=== PATIENT | female | born 1975 | race Caucasian/White ===

== ENCOUNTER → 2016-06-26 | Outpatient (CLI) | payer OTHER ==
[~2016-06-26] MED LIST: IBUP-1773 PO; MEDR10TA PO
--- NOTE | 2016-06-26 18:13 | Diagnostic Imaging Report ---
INDICATION: Menorrhagia. COMPARISON: 01/01/2015. FINDINGS: The uterus measures 6.4 cm x 3.5 cm x 5.7 cm. The endometrium is 11 mm in thickness. The left ovary measures 2.1 cm x 2.6 cm x 2.3 cm. There are small cysts or follicles present on the left ovary. Doppler imaging demonstrates normal blood flow to the left ovary. The right ovary is not visualized. There is no adnexal mass or free fluid seen. IMPRESSION: No acute abnormality is demonstrated. Uterine endometrium measures about 11 mm which is within normal limits for menstruating female. There are multiple cysts or follicles in the left ovary. The right ovary is not visualized. Dictated by: Dictated on workstation # [id number]
== END ==
LOC: RAD 17:12
PROVIDERS: ATTEND Obstetrics & Gynecology
DX: N92.0 Excessive and frequent menstruation with regular cycle (principal); E66.01 Morbid (severe) obesity due to excess calories
CPT/HCPCS: 76830; 76856

== ENCOUNTER 2016-07-07 15:32 | Outpatient (CLI) | payer OTHER ==
[~2016-07-07] VITALS: Ht 157.5 cm; Wt 113.0 kg
[2016-07-07] MEDS ORDERED: MEDR10TA PO (15:46)
[2016-07-07 15:49] VITALS: BP 128/70
[2016-07-07 16:22] LABS: BASOPHILS % (AUTO) 0 % (0-10); EOSINOPHILS # (AUTO) 0.1 10^3/uL (0.0-0.3); EOSINOPHILS % (AUTO) 1 % (0-10); LYMPHOCYTES # (AUTO) 2.2 X 10^3 (1.0-4.0); LYMPHOCYTES % (AUTO) 28 % (12-44); MEAN CORPUSCULAR HEMOGLOBIN 31 PG (25-34); MEAN CORPUSCULAR HGB CONC 35 G/DL (32-36); MEAN CORPUSCULAR VOLUME 88 FL (80-99); MEAN PLATELET VOLUME 11.6 FL (7.4-10.4); MONOCYTES # (AUTO) 0.5 X 10^3 (0.0-1.0); MONOCYTES % (AUTO) 6 % (0-12); NEUTROPHILS # (AUTO) 4.9 X 10^3 (1.8-7.8); NEUTROPHILS % (AUTO) 64 % (42-75); PLATELET COUNT 184 10^3/uL (130-400); RED BLOOD COUNT 4.54 10^6/uL (4.35-5.85); RED CELL DISTRIBUTION WIDTH 12.1 % (10.0-14.5); WHITE BLOOD COUNT 7.6 10^3/uL (4.3-11.0)
== END 2016-07-07 16:00 | disposition home or self-care (01) ==
LOC: PREOP 15:32
PROVIDERS: ATTEND Obstetrics & Gynecology
DX: Z01.812 Encounter for preprocedural laboratory examination (principal); Z11.2 Encounter for screening for other bacterial diseases; N93.9 Abnormal uterine and vaginal bleeding, unspecified; E66.01 Morbid (severe) obesity due to excess calories; Z68.42 Body mass index [BMI] 45.0-49.9, adult
CPT/HCPCS: 36415; 85025; 86850; 86900; 86901; 87081

== ENCOUNTER 2016-07-10 07:10 | Day surgery (SDC) | payer OTHER ==
[~2016-07-10] VITALS: Ht 157.5 cm; Wt 113.0 kg
[~2016-07-10 07:10] MED LIST changes: +BUPIVACAINE 0.25% 30 ML (SENSORCAINE) VIAL ONE; -IBUP-1773 PO
[2016-07-10] MEDS ORDERED: ONDANSETRON 4 MG/2 ML (SDV) Z0FRAN ONE (07:35)
[2016-07-10] MEDS ORDERED: FAMOTIDINE 20MG/2ML IV (PEPCID) ONE (07:35)
[2016-07-10] MEDS ORDERED: SCOPOLAMINE 1.5 MG (TRANSDERM-SCOP) PATCH ONE (07:35)
[2016-07-10] MEDS ORDERED: LACTATED RINGERS 1,000 ML IV PRN (08:02)
[2016-07-10 08:07] VITALS: BP 135/86
[2016-07-10] MEDS ORDERED: FAMOTIDINE 20MG/2ML IV (PEPCID) IV ONE (08:15)
[2016-07-10] MEDS ORDERED: SCOPOLAMINE 1.5 MG (TRANSDERM-SCOP) PATCH TOP ONE (08:15)
[2016-07-10] MEDS ORDERED: ONDANSETRON 4 MG/2 ML (SDV) Z0FRAN IV ONE (08:15)
--- NOTE | 2016-07-10 08:23 | Progress Note-Pre Operative ---
Pre-Operative Progress Note H&P Reviewed The H&P was reviewed, patient examined and no changes noted. Date H&P Reviewed: Jul 10, 2016 Time H&P Reviewed: 08:00 Pre-Operative Diagnosis: AUB, Morbid obesity ANNETTE DIEGO DO Jul 10, 2016 8:23 am
[2016-07-10] MEDS ORDERED: MIDAZOLAM 2 MG/2 ML (VERSED) VIAL ONE (08:27)
[2016-07-10] MEDS ORDERED: DEXAMETHASONE PF 10 MG/ML (DECADRON) VIAL ONE (08:27)
[2016-07-10] MEDS ORDERED: fentaNYL INJECTION 100 MCG/2 ML AMP ONE (08:27)
[2016-07-10] MEDS ORDERED: LIDOCAINE PF 2% 10 ML (XYLOCAINE) AMP ONE (08:27)
[2016-07-10] MEDS ORDERED: SEVOFLURANE (ULTANE) 15 ML INHAL SOLN ONE (08:27)
[2016-07-10] MEDS ORDERED: KETOROLAC 30 MG/ML VIAL ONE ×2 (08:27→09:40)
[2016-07-10] MEDS ORDERED: proPOfol 200 MG/20 ML (DIPRIVAN) VIAL IV ONE (08:27)
[2016-07-10] MEDS ORDERED: morphine INJ 10 MG/ML 1ML (SYR OR VIAL) IV PRN (08:30)
[2016-07-10] MEDS ORDERED: fentaNYL INJECTION 250 MCG/5 ML AMP IV PRN (08:30)
[2016-07-10] MEDS ORDERED: PROMETHAZINE INJ 25 MG/ML (PHENERGAN) AMP IV PRN (08:30)
[2016-07-10] MEDS ORDERED: ONDANSETRON 4 MG/2 ML (SDV) Z0FRAN IV PRN (08:30)
--- NOTE | 2016-07-10 09:22 | Discharge Inst-Women's Service ---
Discharge Inst-Women's Serv Depart Medication/Instructions New, Converted or Re-Newed RX: RX on Chart Consults/Follow Up Additional Follow Up: Yes Activity Activity: Activity as Tolerated Driving Instructions: You May Drive NO SMOKING: NO SMOKING Nothing Inside Vagina: No Douching, No [place], No Tampons Other Activity pelvic rest x 2 weeks Diet Discharge Diet: No Restrictions Symptoms to Report to : Bleeding Excessive, Pain Increased, Fever Over 101 Degrees F, Vaginal Bleeding Increase, Questions/Concerns For Any Problems or Questions: Contact Your Physician Skin/Wound Care Bathing Instructions: Shower (x 2 weeks) ANNETTE DIEGO DO Jul 10, 2016 9:22 am
[2016-07-10] MEDS ORDERED: IBUP-1773 PO (09:23)
[2016-07-10] MEDS ORDERED: D5 LR IV SOLUTION 1,000 ML IV SCH (09:23)
[2016-07-10] MEDS ORDERED: KETOROLAC 30 MG/ML VIAL IVP ONE (09:30)
[2016-07-10] MEDS ORDERED: ONDANSETRON 4 MG/2 ML (SDV) Z0FRAN IVP PRN (09:30)
[2016-07-10 10:15] VITALS: BP 119/81
[2016-07-10 10:45] VITALS: BP 107/58
[2016-07-10 11:15] VITALS: BP 119/77
[2016-07-10] MEDS ORDERED: IBUPROFEN 600 MG (MOTRIN) TAB PO SCH (12:00)
--- NOTE | 2016-07-11 09:44 | OPERATIVE REPORT ---
PROCEDURE PHYSICIAN: ANNETTE DIEOG DATE OF PROCEDURE: 07/10/2016 PREOPERATIVE DIAGNOSIS: 1. 41-year-ole female with abnormal uterine bleeding. 2. Morbid obesity. POSTOPERATIVE DIAGNOSES: 1. 41-year-old female with abnormal uterine bleeding. 2. Morbid obesity. PROCEDURE: 1. D&C with exam under anesthesia and Pap smear cytology. 2. Hysteroscopy. SURGEON: Dr. Annette Diego. ANESTHESIA: General endotracheal. ESTIMATED BLOOD LOSS: Minimal. URINE OUTPUT: 40 mL. FLUIDS: 1600 mL lactated ringer solution. FINDINGS: Findings is a normal size uterus on bimanual examination, normal palpating adnexa on bimanual examination. Normal appearing cervix and vaginal mucosal , extensive amount of fluffy endometrial tissue with a potential uterine endometrial fundal polyp formation. SPECIMEN SENT: Endometrial curettings. INDICATIONS FOR PROCEDURE: This 41-year-old female is a patient establish in my office for well woman's care. She was noted to have extremely heavy bleeding, this in combination with her morbid obesity and being over the age of 40 prompted me to recommend endometrial sampling. The patient also was having extensive amount of bleeding and so I discussed with her doing a D&C, not just for diagnostic but also for potential curative purposes. The risks of the procedure were discussed with the patient in detail including risk of bleeding, infection, damaging any of the surrounding structures including but not limited to the bowel, bladder, ureter, kidneys, risk of uterine perforation, possible laparotomy, risk for need for blood transfusion, and anesthesia, and even were all discussed with the patient in detail. After all of her questions were answered, I also discussed with her deferring her in office Pap smear and performing it while she was under anesthesia which she is very happy to do as the exam makes here extremely nervous so we decided to do this as well. Consent is obtained in the preoperative area and the patient was taken to the operating room. OPERATIVE REPORT IN DETAIL: Once in the operating room, general anesthesia was found to be adequate. She was placed in dorsal lithotomy position. Before prepping the patient, I perform a Pap smear using a bone speculum and collecting the cytology using a Pap cytology brush. After which she was prepped and draped in the normal sterile fashion. A weighted speculum was inserted in the patient's vagina after a bimanual examination was performed revealing my findings above. Right angle retractor was used to visualize the cervix. It was grasped at the 12 o'clock position using a long Allis clamp. I then perform a paracervical block at the 3 and 9 o'clock positions on the cervix. Care was taken to aspirate before injecting. A total of 10 mL a 0.25% Marcaine are used. Once this is done, I gently sound the uterine cavity depth which was found to be 8 cm. I then gently dilate the cervix using Hegar dilators to a maximum dilatation of approximately 8 mm, at which point I direct a hysteroscope through the cervix using normal saline as my visual medium. I am able to visualize the endometrial cavity. I can see my findings above, after which I performed a methodical and gentle endometrial curetting using a medium size endometrial curette. A moderate amount of tissue is collected and sent as endometrial curettings, after which I take a second look using the hysteroscope and the vast majority of the endometrial excessive tissue, as well as the fundal polyps seemed to have been removed. At which point I remove the hysteroscope and remove all the instruments from the patient's vagina. The patient tolerated the procedure well and was taken to the recovery area in stable condition. Lap and sponge counts correct at the end of the procedure. Instrument counts correct as well. Straight catheterization was performed after the procedure is complete and 40 mL of clear urine are emptied. Job ID: [id number] Dictated Date: 07/10/2016 09:28:57 Chiropractic Neurologist Date: 07/11/2016 09:28:28 / david
== END 2016-07-10 11:35 | disposition home or self-care (01) ==
LOC: SDC 07:10 → EEVIPCON 07:30 → SDC 11:35
PROVIDERS: ATTEND Obstetrics & Gynecology
DX: N93.9 Abnormal uterine and vaginal bleeding, unspecified (principal); E66.01 Morbid (severe) obesity due to excess calories; Z68.42 Body mass index [BMI] 45.0-49.9, adult
CPT/HCPCS: 84703; 94664